=== PATIENT | male | born 1980 | race Caucasian/White ===

== ENCOUNTER 2017-07-14 19:07 | Emergency (ER) | payer OTHER ==
[~2017-07-14] VITALS: Ht 182.9 cm; Wt 85.3 kg
[2017-07-14 19:27] VITALS: BP 134/91
--- NOTE | 2017-07-14 19:37 | ED.ADGEN ---
Past History Past Medical History: No Pertinent History Past Surgical History: Other Adult General Chief Complaint Chief Complaint Swollen neck tissue HPI HPI Patient is a 36-year-old male who presents with what is described as an isolated tender swollen lymph node in the right submandibular region. Symptoms began 5 days ago. Patient denies fever, sore throat, nasal congestion, rhinorrhea cough or recent upper respiratory tract illness. Lymph node is mildly painful and is not visible on gross exam. Patient does not currently have a PCP and has not been evaluated for this complaint prior to today. Review of Systems Review of Systems Review of symptoms as per history of present illness. All other review symptoms are negative. All other systems were reviewed and found to be within normal limits, except as documented in this note. Allergies Allergies Allergies Coded Allergies Type Severity Reaction Last Updated Verified No Known Drug Allergies 07/14/17 No Physical Exam Physical Exam Constitutional: Well developed, well nourished, no acute distress, non-toxic appearance. [] HENT: Normocephalic, atraumatic, bilateral external ears normal, oropharynx moist, no appreciable POP swelling, redness, exudate, or masses. Uvula is midline, nose normal. [] Eyes: PERRLA, EOMI, conjunctiva normal, no discharge. [] Neck: Normal range of motion, no appreciated lymphadenopathy, patient points to tender subcentimeter jacob-tracheal subcutaneous nodule described as tender and painful.[] Lungs & Thorax: Bilateral breath sounds clear to auscultation. [] Neurologic: Alert and oriented X 3, normal motor function, normal sensory function, no focal deficits noted. [] Psychologic: Affect normal, judgement normal, mood normal. [] Current Patient Data Vital Signs Vital Signs Date Time Temp Pulse Resp B/P (MAP) Pulse Ox O2 Delivery O2 Flow Rate FiO2 07/14/17 19:15 98.5 69 16 100 Room Air EKG EKG [] Radiology/Procedures Radiology/Procedures [] Course & Med Decision Making Course & Med Decision Making Pertinent Labs and Imaging studies reviewed. (See chart for details) [No identifiable source of infection on exam. Patient may have a localized tender inflamed lymph node versus some other soft tissue mass. Recommend taken ibuprofen with PCP follow-up in the next 1-2 weeks.] Final Impression Final Impression [#1 tender soft tissue neck mass] Problems: Dragon Disclaimer Dragon Disclaimer This electronic medical record was generated, in whole or in part, using a voice recognition dictation system. CLAY FRAUSTO DO Jul 14, 2017 19:37
== END 2017-07-14 19:27 | disposition home or self-care (01) ==
LOC: ER 19:07
DX: R22.1 Localized swelling, mass and lump, neck (principal); R59.9 Enlarged lymph nodes, unspecified
CPT/HCPCS: 99281